=== PATIENT | male | born 1985 | race Caucasian/White ===

== ENCOUNTER 2019-08-28 10:18 | Emergency (ER) | payer SELFPAY ==
[~2019-08-28] VITALS: Ht 149.9 cm; Wt 56.7 kg
[2019-08-28 10:33] VITALS: Ht 149.9 cm; Wt 56.7 kg
[2019-08-28 15:10] VITALS: BP 121/65
== END 2019-08-28 15:10 | disposition home or self-care (01) ==
LOC: ED 10:18
DX: G93.41 Metabolic encephalopathy (principal); F10.129 Alcohol abuse with intoxication, unspecified

== ENCOUNTER 2020-05-27 04:15 | Emergency (ER) | payer OTHER ==
[~2020-05-27] VITALS: Ht 157.5 cm; Wt 61.2 kg
[2020-05-27 04:27] VITALS: Ht 157.5 cm; Wt 61.2 kg
[2020-05-27 06:47] VITALS: BP 111/70
== END 2020-05-27 06:47 | disposition home or self-care (01) ==
LOC: ED 04:15
DX: S01.112A Laceration without foreign body of left eyelid and periocular area, initial encounter (principal); W22.8XXA Striking against or struck by other objects, initial encounter; Y93.89 Activity, other specified; Y92.89 Other specified places as the place of occurrence of the external cause; Y99.8 Other external cause status
CPT/HCPCS: J2001

== ENCOUNTER 2020-06-03 16:52 | Emergency (ER) | payer OTHER ==
[~2020-06-03] VITALS: Ht 157.5 cm; Wt 63.0 kg
[2020-06-03 17:01] VITALS: Ht 157.5 cm; Wt 63.0 kg
[2020-06-03 18:01] VITALS: BP 124/72
== END 2020-06-03 18:01 | disposition home or self-care (01) ==
LOC: ED 16:52
DX: S02.609A Fracture of mandible, unspecified, initial encounter for closed fracture (principal); S05.12XD Contusion of eyeball and orbital tissues, left eye, subsequent encounter; Y04.0XXA Assault by unarmed brawl or fight, initial encounter; Y93.89 Activity, other specified; Y92.89 Other specified places as the place of occurrence of the external cause; Y99.8 Other external cause status